=== PATIENT | female | born 1945 | race Caucasian/White ===

== ENCOUNTER 2020-01-01 21:15 | Inpatient (IN) | payer MEDICARE, OTHER ==
[~2020-01-01] VITALS: Ht 165.1 cm; Wt 65.8 kg
[~2020-01-01 21:15] MED LIST: CYCL10 PO; NITR100CA PO; TRAM50 PO
[2020-01-02] MEDS ORDERED: Norco 5-325 Ta1 EACH PO (04:57)
[2020-01-02 05:09] LABS: BASOPHILS ABSOLUTE AUTO 0.03 K/mm3 (0.00-0.23); BASOPHILS PERCENT AUTO 0 % (0-2); EOSINOPHILS PERCENT AUTO 0 % (0-6); Hematocrit 46.3 % (33.0-51.0); Hemoglobin 15.4 g/dL (11.5-16.0); IMMATURE GRAN ABSOLUTE AUTO 0.06 K/mm3 (0.00-0.10); IMMATURE GRAN PERCENT AUTO 1 % (0-1); LYMPHOCYTES ABSOLUTE AUTO 0.74 K/mm3 (0.84-5.20); LYMPHOCYTES PERCENT AUTO 10 % (21-46); MONOCYTES ABSOLUTE AUTO 0.07 K/mm3 (0.16-1.47); MONOCYTES PERCENT AUTO 1 % (4-13); Mean Corpuscular HGB 32.9 pg (26.0-34.0); Mean Corpuscular HGB Conc 33.3 g/dL (31.5-36.5); Mean Corpuscular Volume 99 fL (80-100); Mean Platelet Volume 11.4 fL (9.1-12.4); NEUTROPHILS ABSOLUTE AUTO 6.24 K/mm3 (1.96-9.15); NEUTROPHILS PERCENT AUTO 87 % (41-73); Platelet Count 245 K/mm3 (150-400); RDW Coefficient Variation 13.5 % (11.7-14.2); RDW Standard Deviation 49.3 fL (35.1-46.3); Red Blood Cell Count 4.68 M/mm3 (3.80-5.20); White Blood Cell Count 7.14 K/mm3 (4.00-11.30)
[2020-01-02 05:37] LABS: Alanine Aminotransfer (ALT/SGP 28 U/L (12-78); Albumin, Blood 3.5 g/dL (3.4-5.0); Albumin/Globulin Ratio 0.7 (0.8-1.8); Alk Phos 100 U/L (50-136); Anion Gap 8 mmol/L (6-16); Aspartate Aminotrans (AST/SGOT 22 U/L (12-37); Bilirubin, Total 0.5 mg/dL (0.1-1.0); Blood Urea Nitrogen 13 mg/dL (8-24); Bun/Creatinine Ratio 17.3 (12.0-20.0); CO2, Blood 26 mmol/L (21-32); Calcium, Blood 8.9 mg/dL (8.5-10.1); Chloride, Blood 103 mmol/L (98-108); Creatinine, Blood 0.75 mg/dL (0.40-1.00); Globulin, Blood 4.8 g/dL (2.2-4.0); Glomerular Filtration Rate >60 (60-); Glucose, Blood 116 mg/dL (70-99); Potassium, Blood 3.9 mmol/L (3.5-5.5); Sodium, Blood 137 mmol/L (136-145); Total Protein, Blood 8.3 g/dL (6.4-8.2)
--- NOTE | 2020-01-02 07:25 | NUR ---
SHIFT SUMMARY PATIENT ARRIVED TO THE MEDICAL UNIT VIA STRETCHER. WAS AT A PAIN LEVEL OF 9/10 UPON TRANSFER. THIS RN CALLED THE GLAZE GRINDER PHYSICIAN, DR ABDI, TO NOTIFY OF THE PAIN. HE ORDERED A ONE TIME DOSE 1 MG OF IV DILAUDED AND ORDERED THE PATIENT'S HOME REGIMEN OF TRAMADOL. AFTER PATIENT WAS SETTLED AND MEDICATED HER PAIN CAME DOWN TO 4/10. PATIENT ALERT AND ORIENTED AND CONTINENT. DOES WELL WITH USING THE BED CRONIN. IV PATENT AND FLUSHED. BED IN LOWEST POSITION WITH WHEELS LOCKED. CALL LIGHT AND BELONGINGS WITHIN REACH. REPORT GIVEN TO ONCOMING RN.
--- NOTE | 2020-01-02 18:08 | NUR ---
SHIFT SUMMARY PT A&O WITH OCCASIONAL CONFUSSION EASILY REDIRECTED. PT PULLED IV OUT SHIFT, ORDER PLACED FOR NO IV ACESS PER DR. SIEGEL. PT WAS MEDICATE X3 THIS SHIFT FOR PAIN, PT REPORTS PAIN WELL MANAGED LONG SHE WASN'T SITTING UP. PT ON A REGULAR DIET AND TOLORATED WELL. PT HAD OT AND PT EVALUATION COMPLETED THIS SHIFT. PT VOICES CONCERNS ABOUT RETURNING TO CURRENT LIVING SITUATION DUE TO THE AMOUNT OF STAIRS AND LACK OF SPACE. PT HAS CALL LIGHT WITH IN REACH AND BED ALARM ON WILL REPORT TO ILAN RN.
--- NOTE | 2020-01-02 22:22 | NUR ---
PHYSICIAN COMMUNICATION CONTACTED THE CROWN PERFORATOR OPERATOR PHYSICIAN, GRACIE, AT 2100 TO NOTIFY HIM THAT THE PATIENT WAS HERE FOR A T-12 COMPRESSION FRACTURE AND WAS REQUESTING TYLENOL TO BE ORDERED FOR PAIN. GRACIE ORDERED 500MG TYLENOL PRN Q6 HOURS NEEDED FOR PAIN.
--- NOTE | 2020-01-03 07:20 | NUR ---
SHIFT SUMMARY PATIENT SLIGHTLY FORGETFUL OVERNIGHT. WAS MEDICATED TWICE OVERNIGHT FOR PAIN TOWARDS BEGINNING OF SHIFT. PATIENT HAD NO ADDITIONAL COMPLAINTS SINCE AND SLEPT WELL OVERNIGHT. BED IN LOWEST POSITION WITH WHEELS LOCKED. CALL LIGHT AND BELONGINGS WITHIN REACH. REPORT GIVEN TO ONCOMING RN.
--- NOTE | 2020-01-03 13:35 | NUR ---
SHE HAS JUST HAD A SUCCESSFUL WALK TO THE BATHROOM TO VOID. SHE HAD SPASMS IN HER R BACK AND HER L CALF. SHE HAD TO LEAN BACK WHILE SITTING ON THE TOILET. SHE VOIDED WELL. SHE IS BACK IN BED WITH HER CALL LIGHT. SHE WAS MEDICATED EARLIER THIS MORNING WITH NORCO AND FLEXERIL.
--- NOTE | 2020-01-03 16:46 | NUR ---
I just medicated her with flexeril and norco for the second time this shift. She is sitting up in the chair with a spinal brace on. OT got her up. Her had just brought in the brace. She had a bm today and wants a shower tonight or in the morning hoping the pain will allow her. She is eating and drinking well.
--- NOTE | 2020-01-03 21:51 | NUR ---
Awake, watching TV. Inquired about pain meds. See MAR for details re medication given re pain/discomfort. Call light in reach.
--- NOTE | 2020-01-04 04:49 | NUR ---
SHIFT SUMMARY HAS BEEN RESTING QUIETLY WITH INTERMITTENT AWAKENINGS DUE TO VOICED PAIN, SEE MAR FOR DETAILS WHEN REVEIVED ANALGESICS FOR PAIN. CALL LIGHT IN REACH
--- NOTE | 2020-01-04 15:38 | NUR ---
SHE HAD A VERY PAINFUL MORNING INSPITE OF ANALGESICS. INSPITE OF THAT SHE SAT IN A CHAIR, WALKED TO AND FROM THE BATHROOM, AND SHOWERED ON A SHOWER CHAIR WITH HELP. ORDERED IV FENTANYL PRN AND PREMED FOR THERAPY. SHE HAS HAD THAT TWICE TODAY. SHE HAS ALSO HAD NORCO &FLEXERIL X2 AND TRAMADOL X1. SHE WEARS HER SPINAL BRACE WHEN SHE HAS ACTIVITY. A PERIPHERAL IV WAS INSERTED FOR THE FENTANYL ORDER. SHE EATS AND DRINKS PRETTY WELL.
--- NOTE | 2020-01-05 00:14 | NUR ---
PT HAS BEEN AWAKE AT INTERVALS SINCE SHIFT COMMENCE. BP ELEVATED EARLIER ( 157/106) WHEN VOICING SEVERE BACK PAIN, ANALGESIC ADMINISTERED AND BP CAME DOWN TO WNL (133/82) LATER, CURRENTLY IS RESTING QUIETLY AFTER PAIN MED AND REPOSITIONING. CALL LIGHT IN REACH.
--- NOTE | 2020-01-05 17:01 | NUR ---
CALLED DR SAUCEDA RE BP REQUEST REVIEW AND POSS ORDERS
--- NOTE | 2020-01-05 17:11 | NUR ---
CALLED BACK. ORDERS GIVEN FOR HYDRALAZINE
--- NOTE | 2020-01-05 17:46 | NUR ---
PT QUITE PLEASANT TODAY. DID HAVE INCREASED BP THIS AFT, HYDRALAZINE ORDERS RECEIVED. GIVEN, WILL CONTINUE TO MONITOR. PT STATES PAIN BETTER WITH TORADOL. ABLE TO AMBULATE TO BATHROOM WITHOUT YELLING IN PAIN. NO OTHER CONCERNS AT THIS TIME. BED IN LOW POSITION, CALL LITE IN REACH, CALLS APPROP
--- NOTE | 2020-01-05 19:16 | NUR ---
BP CHECKED AFTER HYDRALAZINE. IMPROVED. SEE VS
--- NOTE | 2020-01-06 09:11 | NUR ---
SUMMARY PT RATES PAIN MOSTLY SAME AFTER MEDS BEFORE GIVEN.HOWEVER, REPORTS MEDS EFFECTIVE. DISCUSSED WITH PT IMPORTANCE OF PAIN CONTROL ADEQUATE ENOUGHTO ALLOWFOR ACTIVITY. DISCUSSED ALTERNATIVES TO NUMBER SCORING, AND PT WILL WORK WITH NURSES TO DETERMINE EFFECTIVE METHOD OF MONITROING PAIN CONTROL.PT HOPES TO GOTO SNF TODAY.
[2020-01-06] MEDS ORDERED: DOCU100 PO (10:55)
[2020-01-06] MEDS ORDERED: SENN187 PO (10:56)
[2020-01-06] MEDS ORDERED: Vitamin D2000 UNIT PO (10:56)
[2020-01-06] MEDS ORDERED: Milk Of Ma400 MG/5 M PO (10:56)
[2020-01-06] MEDS ORDERED: LIDOCAINE PAIN1 EACH TOP (10:56)
--- NOTE | 2020-01-06 15:40 | NUR ---
SHIFT SUMMARY PT RESTING QUIETLY AT START OF SHIFT. WOKE EASILY FOR CARE. PLEASANT AND CO-OP. REQUESTED ASSIST TO GO TO [facility], BUT WAS IN TOO MUCH PAIN D/T L4 AND T12 COMPRESSION FX. PT THEN REQUESTED BED CRONIN; [facility] ONLY. PT MEDICATED FOR PAIN AND LATER ABLE TO AMBUTATE TO [facility] FOR BM. BACK BRACE PLACED TO AMBULATE. PT THEN SITTING IN CHAIR AT AND LATER ABLE TO WORK WITH P/T. D/C ORDERS PLACED FOR REHAB. PT TO GO TO TO HELP INCREASE MOBILITY. MEDICATED FOR PAIN PRIOR TO D/C PT ABLE TO CLIMB STAIRS INTO VAN TX AT D/C. REPORT CALLED TO AT PT D/C.
== END 2020-01-06 12:17 | DRG 552 ==
LOC: ER 21:15 → MEDS 21:16
PROVIDERS: ADMIT Internal Medicine
DX: S22.080A Wedge compression fracture of T11-T12 vertebra, initial encounter for closed fracture (principal); S32.040A Wedge compression fracture of fourth lumbar vertebra, initial encounter for closed fracture; M81.0 Age-related osteoporosis without current pathological fracture; W19.XXXA Unspecified fall, initial encounter; R03.0 Elevated blood-pressure reading, without diagnosis of hypertension; K59.00 Constipation, unspecified; M62.838 Other muscle spasm
CPT/HCPCS: 36415; 72131; 80053; 85025; 96372; 96374-59; 96375-59; 96376; 97110; 97112; 97116; 97162; 97165; 97530; 97535; 99284-25; A9270-GY; G0378; J0360; J1100; J1170; J1650; J1885; J2405; J3010

== ENCOUNTER 2020-01-30 18:57 | Emergency (ER) | payer MEDICARE, OTHER ==
[~2020-01-30] VITALS: Ht 162.6 cm; Wt 63.5 kg
[~2020-01-30 18:57] MED LIST changes: +DOCU100 PO; +Milk Of Ma400 MG/5 M PO; +Norco 5-325 Ta1 EACH PO; +SENN187 PO; +Vitamin D2000 UNIT PO
[2020-01-30 20:53] LABS: BASOPHILS ABSOLUTE AUTO 0.04 K/mm3 (0.00-0.23); BASOPHILS PERCENT AUTO 1 % (0-2); EOSINOPHILS ABSOLUTE AUTO 0.09 K/mm3 (0.00-0.68); EOSINOPHILS PERCENT AUTO 1 % (0-6); Hematocrit 39.4 % (33.0-51.0); Hemoglobin 12.7 g/dL (11.5-16.0); IMMATURE GRAN ABSOLUTE AUTO 0.08 K/mm3 (0.00-0.10); IMMATURE GRAN PERCENT AUTO 1 % (0-1); LYMPHOCYTES ABSOLUTE AUTO 2.46 K/mm3 (0.84-5.20); LYMPHOCYTES PERCENT AUTO 29 % (21-46); MONOCYTES ABSOLUTE AUTO 0.55 K/mm3 (0.16-1.47); MONOCYTES PERCENT AUTO 6 % (4-13); Mean Corpuscular HGB 32.1 pg (26.0-34.0); Mean Corpuscular HGB Conc 32.2 g/dL (31.5-36.5); Mean Corpuscular Volume 100 fL (80-100); Mean Platelet Volume 10.9 fL (9.1-12.4); NEUTROPHILS ABSOLUTE AUTO 5.39 K/mm3 (1.96-9.15); NEUTROPHILS PERCENT AUTO 63 % (41-73); Platelet Count 212 K/mm3 (150-400); RDW Coefficient Variation 14.2 % (11.7-14.2); RDW Standard Deviation 51.9 fL (35.1-46.3); Red Blood Cell Count 3.96 M/mm3 (3.80-5.20); White Blood Cell Count 8.61 K/mm3 (4.00-11.30)
[2020-01-30 21:07] LABS: Alanine Aminotransfer (ALT/SGP 28 U/L (12-78); Albumin, Blood 3.6 g/dL (3.4-5.0); Albumin/Globulin Ratio 0.9 (0.8-1.8); Alk Phos 67 U/L (50-136); Anion Gap 6 mmol/L (6-16); Aspartate Aminotrans (AST/SGOT 21 U/L (12-37); Bilirubin, Total 0.3 mg/dL (0.1-1.0); Blood Urea Nitrogen 16 mg/dL (8-24); Bun/Creatinine Ratio 20.2 (12.0-20.0); CO2, Blood 27 mmol/L (21-32); Chloride, Blood 106 mmol/L (98-108); Creatinine, Blood 0.79 mg/dL (0.40-1.00); Globulin, Blood 3.9 g/dL (2.2-4.0); Glomerular Filtration Rate >60 (60-); Glucose, Blood 87 mg/dL (70-99); International Normalized Ratio 0.93; Sodium, Blood 139 mmol/L (136-145); Total Protein, Blood 7.5 g/dL (6.4-8.2)
[2020-01-30] MEDS ORDERED: Citalopram HBr20 MG PO (21:23)
[2020-01-30] MEDS ORDERED: EUTHYROX137 MC1 PO (21:24)
[2020-01-30] MEDS ORDERED: LIDOCAINE1 EACH TD (21:25)
[2020-01-30] MEDS ORDERED: PRAVASTATIN SOD20 MG PO (21:28)
[2020-01-30] MEDS ORDERED: ZANAFLEX4 MG PO (21:29)
[2020-01-30] MEDS ORDERED: Lopressor 25 mg25 MG PO (21:47)
== END 2020-01-30 22:29 | disposition home or self-care (01) ==
LOC: ER 18:57
PROVIDERS: Emergency Medicine
DX: S00.03XA Contusion of scalp, initial encounter (principal); I48.91 Unspecified atrial fibrillation; F03.90 Unspecified dementia, unspecified severity, without behavioral disturbance, psychotic disturbance, mood disturbance, and anxiety; Z87.891 Personal history of nicotine dependence; W18.30XA Fall on same level, unspecified, initial encounter
CPT/HCPCS: 36415; 70450; 80053; 85025; 85610; 85730; 93005; 93010; 99284-25

== ENCOUNTER → 2020-12-04 | Outpatient (CLI) | payer MEDICARE, OTHER ==
[~2020-12-04] MED LIST changes: +Citalopram HBr20 MG PO; +EUTHYROX137 MC1 PO; +LIDOCAINE1 EACH TD; +Lopressor 25 mg25 MG PO; +PRAVASTATIN SOD20 MG PO; +ZANAFLEX4 MG PO
[2020-12-04 14:38] LABS: Source, Urine Clean Catch
[2020-12-04 19:24] LABS: Appearance, Urine Clear (Clear); Bilirubin, Urine Neg (Neg); Blood, Urine Neg (Neg); Color, Urine Yellow (P-Yellow); Glucose Qualitative, Urine Neg (Neg); Ketones, Urine Neg (Neg); Leukocyte Esterase, Urine Neg (Neg); Nitrite, Urine Neg (Neg); Protein, Urine Neg (Neg); Urobilinogen, Urine NORM (Normal)
== END | disposition home or self-care (01) ==
LOC: LAB SHORT 14:35 → LAB 14:35
PROVIDERS: Obstetrics & Gynecology
DX: R30.0 Dysuria (principal)
CPT/HCPCS: 81003